=== PATIENT | female | born 1950 | race Caucasian/White ===

== ENCOUNTER → 2016-11-10 | Outpatient (CLI) | payer OTHER ==
[~2016-11-10] MED LIST: IOPAMIDOL (ISOVUE-300) 100 ML BTL IV ONE
== END ==
LOC: CIMAGING 09:15
PROVIDERS: ATTEND Family Medicine
DX: R10.12 Left upper quadrant pain (principal); N28.1 Cyst of kidney, acquired; K86.9 Disease of pancreas, unspecified
CPT/HCPCS: 74177-PO; Q9967

== ENCOUNTER 2016-11-16 08:36 | Day surgery (SDC) | payer OTHER ==
[2016-11-16] MEDS ORDERED: LIDOCAINE 1% 2 ML INJ ONE (08:49)
[2016-11-16] MEDS ORDERED: LR 1,000 ML IV ONE (09:15)
[2016-11-16] MEDS ORDERED: LIDOCAINE 1% 5 ML SDV ID PRN (09:15)
[2016-11-16] MEDS ORDERED: INSULIN REGULAR HUMAN 100 UNIT/ML ONE (09:50)
[2016-11-16] MEDS ORDERED: fentaNYL 100 MCG/2 ML INJ ONE (10:14)
[2016-11-16] MEDS ORDERED: PROPOFOL/EMULSION 500 MG/50 ML BOTTLE IV ONE (10:15)
[2016-11-16] MEDS ORDERED: KETAMINE 100 MG/10 ML SYR IVP ONE (10:15)
[2016-11-16] MEDS ORDERED: MIDAZOLAM 2 MG/2 ML VIAL ONE (10:25)
[2016-11-16] MEDS ORDERED: levOFLOXACIN 500 MG/DEXTROSE 100 ML IV ONE (10:30)
[2016-11-16] MEDS ORDERED: ONDANSETRON 4 MG/2 ML VIAL ONE (10:53)
[2016-11-16] MEDS ORDERED: DEXAMETHASONE 4 MG/ML VIAL ONE (10:53)
--- NOTE | 2016-11-16 11:58 | GPN ---
[f rep st] PROCEDURE NOTE DATE OF PROCEDURE: 11/16/2016 PROCEDURE: Colonoscopy. INDICATION: The patient is a 66-year-old female with a history of colonic polyps who presents for surveillance colonoscopy. CONSENT: Risks, benefits, and alternatives of the procedure were discussed in great detail with the patient. Risks of infection, bleeding, perforation, and sedation were discussed. All questions were answered and informed consent was obtained. MEDICATIONS: Propofol. Please see anesthesia record for details. ESTIMATED BLOOD LOSS: None. COLONOSCOPIC EVALUATION: A rectal exam was done with no palpable masses felt. The Olympus adult colonoscope was inserted in the rectum and advanced to the cecum, where the ileocecal valve and appendiceal orifice were seen. The mucosa was carefully examined on both insertion and withdrawal of the scope. No polyps or lesions were noted. IMPRESSION: No polyps or mass lesion noted. RECOMMENDATIONS: 1. Repeat colonoscopy in 5 years. 2. Continue previous medications. 3. Advance diet. /[id number]/MODL MTDD
--- NOTE | 2016-11-16 12:24 | GPN ---
[f rep st] PROCEDURE NOTE DATE OF PROCEDURE: 11/16/2016 PROCEDURE: Esophagogastroduodenoscopy with biopsy, endoscopic ultrasound with fine needle aspiration. INDICATION: The patient is a 66-year-old female, who presents with complaints of left upper quadrant abdominal pain as well as for evaluation of abnormal imaging. She had a recent CT scan due to her pain,and was found to have a dilated pancreatic duct as well as cystic lesions in the head of the pancreas. She presents for further evaluation and possible tissue acquisition. CONSENT: Risks, benefits, and alternatives of the procedure were discussed in great detail with the patient. Risks of infection, bleeding, perforation, sedation, and pancreatitis were discussed. All questions answered. Informed consent obtained. MEDICATIONS: Propofol. Please see Anesthesiology record for details. Levaquin 500 mg IV x1. ESTIMATED BLOOD LOSS: Insignificant. ESOPHAGOGASTRODUODENOSCOPY EXAMINATION: The Olympus upper endoscope introduced into the mouth and advanced to the esophagus. The proximal and midesophagus were normal in appearance. The patient was noted to an irregular Z line with LA grade A esophagitis. Biopsies were taken. The stomach was entered and closely examined, including retroflexed views of the angularis, cardia, and fundus. A small hiatal hernia was noted. The mucosa in the antrum and body was erythematous in a patchy distribution. Biopsies taken. The duodenal bulb and duodenum were normal in appearance. Biopsies were taken to rule out celiac sprue. ENDOSCOPIC ULTRASOUND EXAMINATION: The Olympus linear echoendoscope was introduced into the mouth and advanced to the second portion of the duodenum. The pancreas was examined from the uncinate to the tail, where the spleen was seen. Multiple dilated side branches were seen throughout the pancreas. The main pancreatic duct was mildly dilated. It measured 2.5 mm in the head. The wall was hyperechoic. Lobulations were noted in the head and the body. At the head of the pancreas, a 1.5cm x 1.6 cm cyst was seen. The wall was very thin and it appeared to communicate with the pancreatic duct. Doppler was used to rule out intervening vessels. One pass was made with a Edgeio 22- gauge FNA needle. Approximately 2 cc of fluid was aspirated; 1 cc sent for CEA and amylase and slides were made with the res of the fluid. Cytology was present. Another cyst versus dilated side branch with stone was seen in the head of the pancreas. It measured approximately 1.2 x 0.8 mm. A 3 mm stone was seen with hyperechoic shadowing. No obvious liver lesion was seen. The common bile duct was seen without stone, stricture, or stenosis. No suspicious periportal, peripancreatic, or perigastric lymph nodes were appreciated. IMPRESSION: 1. Pancreatic cyst-status post fine needle aspiration. IPMN versus pseudocyst versus other? Will await fluid analysis. 2. Parenchymal changes in the pancreas. 3. Gastritis status post biopsies. 4. Esophagitis status post biopsies. RECOMMENDATIONS: 1. Follow up on biopsy and FNA results. 2. Ciprofloxacin 500 mg p.o. b.i.d. x3 days. 3. PPI therapy. 4. Office visit in 4-6 weeks. 5. Proceed to colonoscopy. /[id number]/MODL MTDD
[2016-11-17 22:33] LABS: AMYLASE RESULT 473600 U/L
== END 2016-11-16 13:30 | disposition home or self-care (01) ==
LOC: FSGY 08:36
PROVIDERS: ATTEND Internal Medicine Gastroenterology
DX: K86.2 Cyst of pancreas (principal); K22.70 Barrett's esophagus without dysplasia; Z03.89 Encounter for observation for other suspected diseases and conditions ruled out; Z86.010 Personal history of colon polyps; E11.9 Type 2 diabetes mellitus without complications; Z79.4 Long term (current) use of insulin; I10 Essential (primary) hypertension; E78.5 Hyperlipidemia, unspecified
CPT/HCPCS: J1100; J1815; J1956; J2250; J2405; J2704; J3010